=== PATIENT | male | born 1980 | race Caucasian/White ===

== ENCOUNTER 2017-12-31 15:13 | Emergency (ER) | payer OTHER ==
[~2017-12-31] VITALS: Ht 175.3 cm; Wt 105.5 kg
[~2017-12-31 15:13] MED LIST: METH-360 PO
[2017-12-31] MEDS ORDERED: HYDROcodone/acetaminophen 10/325mg tab PO STA (15:26)
[2017-12-31] MEDS ORDERED: BUPIVAcaine/PF 2.5 mg/ml (0.25%) 30ml vial IJ ONE (15:55)
[2017-12-31 16:34] VITALS: BP 143/92
== END 2017-12-31 16:38 | disposition home or self-care (01) ==
LOC: ER 15:13
DX: S66.912A Strain of unspecified muscle, fascia and tendon at wrist and hand level, left hand, initial encounter (principal); G89.29 Other chronic pain; Z98.890 Other specified postprocedural states; Z88.8 Allergy status to other drugs, medicaments and biological substances; Z79.899 Other long term (current) drug therapy; W18.39XA Other fall on same level, initial encounter; Y93.89 Activity, other specified; Y92.89 Other specified places as the place of occurrence of the external cause; Y99.8 Other external cause status
CPT/HCPCS: 29125; 73140; 99284; J3490

== ENCOUNTER 2018-01-17 12:11 | Emergency (ER) | payer OTHER ==
[~2018-01-17] VITALS: Ht 175.3 cm; Wt 105.0 kg
[2018-01-17 12:18] VITALS: BP 145/97
[2018-01-17] MEDS ORDERED: SULF1TAB49 PO (13:33)
[2018-01-17] MEDS ORDERED: CEPH-572 PO (13:33)
[2018-01-17] MEDS ORDERED: cephalexin 250mg capsule PO ONE (13:40)
[2018-01-17] MEDS ORDERED: sulfamethoxazole/trimethoprim DS (800/160mg) tablet PO ONE (13:40)
== END 2018-01-17 13:43 | disposition home or self-care (01) ==
LOC: ER 12:12
DX: L02.511 Cutaneous abscess of right hand (principal); G89.29 Other chronic pain; Z79.899 Other long term (current) drug therapy; Z88.8 Allergy status to other drugs, medicaments and biological substances
CPT/HCPCS: 99283

== ENCOUNTER 2018-07-13 06:07 | Day surgery (SDC) | payer OTHER ==
[2018-07-11 15:16] LABS: BASOPHILS % (AUTO) 0.2 % (0-1); EOSINOPHILS # (AUTO) 0.1 X10'3 (0-0.9); EOSINOPHILS % (AUTO) 1.5 % (0-6); LYMPHOCYTES # (AUTO) 2.2 X10'3 (1.1-4.8); LYMPHOCYTES % (AUTO) 24.4 % (21-51); MEAN CORPUSCULAR HEMOGLOBIN 32.9 PG (27.0-31.0); MEAN CORPUSCULAR HGB CONC 34.4 % (33.0-36.5); MEAN CORPUSCULAR VOLUME 95.8 FL (78-98); MEAN PLATELET VOLUME 9.2 FL (7.4-10.4); MONOCYTES # (AUTO) 0.4 X10'3 (0-0.9); MONOCYTES % (AUTO) 4.5 % (2-12); NEUTROPHILS # (AUTO) 6.2 X10'3 (1.8-7.7); NEUTROPHILS % (AUTO) 69.4 % (42-75); PRE OP HEMATOCRIT 42.2 % (42.0-52.0); PRE OP HEMOGLOBIN 14.5 g/dL (14.0-17.9); PRE OP PLATELET COUNT 218 X10'3 (140-440); RED CELL DISTRIBUTION WIDTH 13.3 % (11.5-14.5)
[2018-07-11 15:35] LABS: ALBUMIN 3.8 G/DL (3.4-5.0); ALBUMIN/GLOBULIN RATIO 1.1 (1.1-1.5); ALKALINE PHOSPHATASE 99 IU/L (46-116); BLOOD UREA NITROGEN 12 MG/DL (7-18); BUN/CREATININE RATIO 12.8 (5.4-32.0); CHLORIDE 105 MMOL/L (99-107); CREATININE 0.94 MG/DL (0.60-1.10); PRE OP ALT 61 U/L (30-65); PRE OP ANION GAP 8 (8-16); PRE OP AST 19 U/L (10-37); PRE OP BILIRUB, TOTAL 0.4 MG/DL (0.0-1.0); PRE OP GLUCOSE 87 MG/DL (70-104); PRE OP POTASSIUM 3.6 MMOL/L (3.4-5.1); PRE OP SODIUM 140 MMOL/L (135-145); TOTAL PROTEIN 7.2 G/DL (6.4-8.2); eGFR 90 ML/MIN
[2018-07-13] VITALS (8 sets, daily range): BP systolic 113–146; BP diastolic 71–85
[~2018-07-13] VITALS: Ht 175.3 cm; Wt 104.3 kg
[~2018-07-13 06:07] MED LIST changes: +Cefazolin 2GM/50ML dext iso,osmotic IVPB IV ONE; -METH-360 PO; +NO HOME MEDS; +albuterol 2.5 MG/3 ML nebule NEB ONE; +famotidine 20mg tablet PO ONE; +ringers solution, lacted 1,000 ML IV SCH
[2018-07-13] MEDS ORDERED: LIDOcaine 1% (10mg/ml) 2ml vial ONE (06:18)
[2018-07-13] MEDS ORDERED: BUPIVAcaine/PF 2.5mg/ml (0.25%) 10ml vial ONE (06:41)
[2018-07-13] MEDS ORDERED: BUPIVAcaine/PF 2.5mg/ml (0.25%) 10ml vial IJ ONE (07:23)
[2018-07-13] MEDS ORDERED: sevoflurane 250ml liquid IH ONE (08:18)
[2018-07-13] MEDS ORDERED: midazolam 2 mg/2 ml injection ONE (08:19)
[2018-07-13] MEDS ORDERED: fentaNYL /PF 50mcg/ml 5ml ampule ONE (08:19)
[2018-07-13] MEDS ORDERED: propofol inj 20 ML IV ONE (08:19)
[2018-07-13] MEDS ORDERED: ringers solution, lacted 1,000 ML IV SCH (08:49)
[2018-07-13] MEDS ORDERED: ondansetron/PF 4mg/2ml inj IV PRN (08:50)
[2018-07-13] MEDS ORDERED: ketorolac trometh. 30mg/ml inj. IV ONE (08:50)
[2018-07-13] MEDS ORDERED: proCHLORperazine 10 MG/2 ml inj IV PRN (08:50)
[2018-07-13] MEDS ORDERED: meperidine/PF 25mg/ml syringe IV PRN ×2 (08:50)
[2018-07-13] MEDS ORDERED: morphine 4 MG/ML inj SYRINge IV PRN ×2 (08:50)
[2018-07-13] MEDS: meperidine/PF 25mg/ml syringe IV PRN ×2 (09:51→10:02)
[2018-07-13] MEDS ORDERED: HYDROcodone/acetaminophen 10/325mg tab PO PRN (10:03)
== END 2018-07-13 10:40 | disposition home or self-care (01) ==
LOC: PAS 06:07
PROVIDERS: ATTEND Orthopaedic Surgery Hand Surgery
DX: T84.098A Other mechanical complication of other internal joint prosthesis, initial encounter (principal); Y83.8 Other surgical procedures as the cause of abnormal reaction of the patient, or of later complication, without mention of misadventure at the time of the procedure; Y92.89 Other specified places as the place of occurrence of the external cause; F17.210 Nicotine dependence, cigarettes, uncomplicated; G43.909 Migraine, unspecified, not intractable, without status migrainosus; Z79.891 Long term (current) use of opiate analgesic; Z72.89 Other problems related to lifestyle; Z79.899 Other long term (current) drug therapy; Z98.890 Other specified postprocedural states; Z88.8 Allergy status to other drugs, medicaments and biological substances
CPT/HCPCS: 25800; 36415; 80053; 85025; A6402; A6449; C1713; J0690; J1885; J2175; J2250; J2704; J3010; J3490; J7120; A7000

== ENCOUNTER 2021-05-18 18:59 | Emergency (ER) | payer OTHER ==
[~2021-05-18] VITALS: Ht 175.3 cm; Wt 103.0 kg
[~2021-05-18 18:59] MED LIST changes: -Cefazolin 2GM/50ML dext iso,osmotic IVPB IV ONE; -albuterol 2.5 MG/3 ML nebule NEB ONE; -famotidine 20mg tablet PO ONE; -ringers solution, lacted 1,000 ML IV SCH
[2021-05-18] MEDS ORDERED: HYDROcodone/acetaminophen 10/325mg tab PO ONE (22:00)
[2021-05-18] MEDS ORDERED: ondansetron 4mg rapidly disintigrating tab PO ONE (22:00)
[2021-05-18] MEDS ORDERED: ondansetron/PF 4mg/2ml inj IV ONE (23:00)
[2021-05-18] MEDS ORDERED: CefTRIAXone/D5W-Rocephin 1gm 50 ML IV ONE (23:00)
[2021-05-18] MEDS ORDERED: morphine 4 MG/ML inj SYRINge IV ONE (23:00)
[2021-05-19] MEDS ORDERED: SULF1TAB45 PO (00:23)
[2021-05-19] MEDS ORDERED: CEPH250T PO (00:23)
[2021-05-19] MEDS ORDERED: IBUP-1984 PO (00:23)
[2021-05-19] MEDS ORDERED: HYDR-3965 PO (00:27)
[2021-05-19 00:40] VITALS: BP 120/78
== END 2021-05-19 00:41 | disposition home or self-care (01) ==
LOC: ER 19:00
DX: L05.01 Pilonidal cyst with abscess (principal); G89.29 Other chronic pain; M54.9 Dorsalgia, unspecified; Z79.899 Other long term (current) drug therapy
CPT/HCPCS: 96365; 96375; 99285; J0696; J2270; J2405

== ENCOUNTER 2021-05-19 15:10 | Emergency (ER) | payer OTHER ==
[~2021-05-19] VITALS: Ht 175.3 cm; Wt 101.0 kg
[~2021-05-19 15:10] MED LIST changes: +CEPH250T PO; +HYDR-3965 PO; +IBUP-1984 PO; +SULF1TAB45 PO
[2021-05-19 15:18] VITALS: BP 138/93
== END 2021-05-20 06:56 | disposition left against medical advice (07) ==
LOC: ER 15:11
DX: L05.91 Pilonidal cyst without abscess (principal); Z53.21 Procedure and treatment not carried out due to patient leaving prior to being seen by health care provider

== ENCOUNTER 2022-07-04 17:13 | Emergency (ER) | payer OTHER ==
[~2022-07-04] VITALS: Ht 193 cm; Wt 104.5 kg
[~2022-07-04 17:13] MED LIST changes: -CEPH250T PO; -HYDR-3965 PO; -IBUP-1984 PO; -SULF1TAB45 PO
[2022-07-04 17:29] VITALS: BP 132/86
[2022-07-04] MEDS ORDERED: sulfamethoxazole/trimethoprim DS (800/160mg) tablet PO ONE (18:10)
[2022-07-04] MEDS ORDERED: LIDOcaine 1% W/epiNEPHrine 1:100,000 20ml vial SQ ONE (18:10)
[2022-07-04] MEDS ORDERED: SULF1TAB49 PO ×3 (19:09→19:13)
== END 2022-07-04 19:27 | disposition home or self-care (01) ==
LOC: ER 17:15
DX: L02.415 Cutaneous abscess of right lower limb (principal); L03.115 Cellulitis of right lower limb; R11.0 Nausea; G89.29 Other chronic pain; Z88.8 Allergy status to other drugs, medicaments and biological substances; Z79.899 Other long term (current) drug therapy
CPT/HCPCS: 10060; 99283; A6449